=== PATIENT | female | born 1980 | race Caucasian/White ===

== ENCOUNTER 2024-09-12 11:34 | Outpatient (OUT) | payer BC, SELFPAY ==
--- NOTE | 2024-09-12 11:38 | MM_ITS ---
Patient Name: KAYKAY JEONG MR#: [id number] : 1980 Exam Date: 09/12/2024 Ordering Doctor: DR GWEN SHEA RADIOLOGY REPORT PROCEDURE: MM TOMOSYNTHESIS SCREENING BI COMPARISON: [facility] M[facility]M [facility] DIAG W CAD, 12/09/2019. [facility] DIAGNOSTIC 3D KELLY CAD, 01/27/2022. INDICATIONS: Screening Calculator Name NCI Breast Cancer Risk Assessment Tool 5 Year Breast Cancer Risk Not Reported. Lifetime Breast Cancer Risk Not Reported. Personal Breast Cancer No Personal Ovarian Cancer No Treatments None Family Cancers None LOCATION: [facility] [place] BREAST COMPOSITION: The breasts are heterogeneously dense,which may obscure small masses. FINDINGS: DIAGNOSTIC CATEGORY 1--NEGATIVE. NO CHANGE FROM COMPARISON ASSESSMENT. Scattered benign-appearing calcifications are present. Scattered benign-appearing lymph nodes are present. RIGHT BREAST: No significant suspicious finding. LEFT BREAST: No significant suspicious finding. RECOMMENDATIONS: ROUTINE MAMMOGRAM AND CLINICAL EVALUATION IN 12 MONTHS. PLEASE NOTE: A NORMAL MAMMOGRAM DOES NOT EXCLUDE THE POSSIBILITY OF BREAST CANCER. A CLINICALLY SUSPICIOUS PALPABLE LUMP SHOULD BE BIOPSIED. Dictated by: Devin Aguilar MD on 09/12/2024 at 14:32 Approved by: Devin Aguilar MD on 09/12/2024 at 14:33
== END 2024-09-12 11:35 | disposition home or self-care (01) ==
LOC: MAMMO 11:34
PROVIDERS: PCP Nurse Practitioner Family; Visit Provider Nurse Practitioner Family
DX: Z12.31 Encounter for screening mammogram for malignant neoplasm of breast (principal)
CPT/HCPCS: 77063; 77067